=== PATIENT | female | born 1995 | race Caucasian/White ===

== ENCOUNTER → 2024-07-02 13:40 | Outpatient (CLI) | payer OTHER ==
[~2024-07-02 13:40] MED LIST: DOXYCYCLINE HY100 MG PO; KETO10TA2 PO
== END | disposition home or self-care (01) ==
LOC: PRENATAL 13:40
PROVIDERS: ATTEND Obstetrics & Gynecology Maternal & Fetal Medicine
DX: O26.849 Uterine size-date discrepancy, unspecified trimester (principal); O36.8199 Decreased fetal movements, unspecified trimester, other fetus; Z3A.32 32 weeks gestation of pregnancy